=== PATIENT | female | born 2000 | race Two or more races ===

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

== ENCOUNTER → 2021-01-06 08:14 | Outpatient (CLI) | payer OTHER | END | disposition home or self-care (01) | LOC: LAB 08:14 | PROVIDERS: ATTEND Student in an Organized Health Care Education/Training Program | DX: J15.7 Pneumonia due to Mycoplasma pneumoniae (principal); E87.8 Other disorders of electrolyte and fluid balance, not elsewhere classified; J02.9 Acute pharyngitis, unspecified; A49.1 Streptococcal infection, unspecified site; Z03.818 Encounter for observation for suspected exposure to other biological agents ruled out ==